=== PATIENT | female | born 1955 | race Caucasian/White ===

== ENCOUNTER 2018-05-17 05:41 | Outpatient (CLI) | payer BC ==
[~2018-05-17] VITALS: Ht 157.5 cm; Wt 79.8 kg
[2018-05-17] MEDS ORDERED: LORA10TA7 PO (14:45)
[2018-05-17] MEDS ORDERED: NADO20TA PO (14:45)
[2018-05-17] MEDS ORDERED: SIMV20TA PO (14:45)
[2018-05-17] MEDS ORDERED: ESCI10TA PO (14:45)
[2018-05-17] MEDS ORDERED: LEVO125T PO (14:45)
[2018-05-17] MEDS ORDERED: ASPI-586 PO (14:45)
== END 2018-05-17 14:55 | disposition home or self-care (01) ==
LOC: PREOP 05:41
PROVIDERS: ATTEND Specialist
DX: Z01.818 Encounter for other preprocedural examination (principal)

== ENCOUNTER 2018-05-23 07:19 | Day surgery (SDC) | payer BC ==
[~2018-05-23] VITALS: Ht 157.5 cm; Wt 79.8 kg
[~2018-05-23 07:19] MED LIST: ASPI-586 PO; ESCI10TA PO; LEVO125T PO; LORA10TA7 PO; NADO20TA PO; SIMV20TA PO
[2018-05-23 07:22] VITALS: BP 139/75
[2018-05-23] MEDS ORDERED: EPINEPHrine INJECTION 1 MG/ML AMP INJ ONE (07:30)
[2018-05-23] MEDS ORDERED: POVIDONE (BETADINE) OPHTH SOLN 5% 30 ML OP ONE (07:30)
[2018-05-23] MEDS ORDERED: BSS 15 ML IR PRN (07:30)
[2018-05-23] MEDS ORDERED: LIDOCAINE PF 1% 2 ML AMP IR PRN (07:30)
[2018-05-23] MEDS ORDERED: MOXIFLOXACIN OPHTH SOLN 5 MG/ML 0.3 ML SYRINGE OP ONE (07:30)
[2018-05-23] MEDS ORDERED: acetaZOLAMIDE ER 500 MG CAP (DIAMOX SEQUELS) PO ONE (07:30)
[2018-05-23] MEDS ORDERED: TIMOLOL MALEATE 0.5% 5 ML (TIMOPTIC) BTL OU PRN (07:30)
[2018-05-23] MEDS: TETRACAINE 0.5% OPHTH SOLN 4 ML BTL (SINGLE DOSE ONLY) OU PRN ×4 (07:33→07:50)
[2018-05-23] MEDS ORDERED: MIDAZOLAM 2 MG/2 ML (VERSED) VIAL ONE (07:33)
[2018-05-23] MEDS: PHENYLEPHRINE 10% OPHTH (NEO-SYN) 5 ML BTL OU SCH ×3 (07:41→07:50)
[2018-05-23] MEDS: CYCLOPENTOLATE 1% (CYCLOGYL) 2 ML DROPS OP SCH ×3 (07:41→07:50)
--- NOTE | 2018-05-23 07:47 | Ophthalmologist Pre-Op Note ---
Pre-Operative Progress Note H&P Reviewed The H&P was reviewed, patient examined and no changes noted. Date H&P Reviewed: May 23, 2018 Time H&P Reviewed: 07:46 Pre-Op Dx Cataract, Left Eye KYLEIGH SALAZAR MD May 23, 2018 07:46
--- NOTE | 2018-05-23 08:19 | Ophthalmology Operative Report ---
Cataract removal/placement IOL PREOPERATIVE DIAGNOSIS: Cataract Left Eye POSTOPERATIVE DIAGNOSIS: Cataract Left Eye PROCEDURE: Cataract removal and placement of posterior chamber implant, left eye SURGEON: Edu Salazar ANESTHESIA: Topical with sedation COMPLICATIONS: None ESTIMATED BLOOD LOSS: Minimal DESCRIPTION OF PROCEDURE: After proper informed consent was obtained, the patient, a 63 female, was taken to the Operating Room and the left eye was anesthetized with tetracaine. The left eye was then prepped and draped in the usual manner. A wire lid speculum was placed. A paracentesis was made at the left hand position. Preservative free lidocaine was injected into the anterior chamber followed by viscoelastic. A clear corneal incision was made in the temporal position. A capsulorrhexis was preformed and the central nuclear and cortical material were removed. The posterior capsule was polished and an Joss 24.0 [id number] IOL was placed into the capsular bag. The residual viscoelastic was aspirated and balanced saline solution was injected into the anterior chamber. Moxifloxacin was injected into the anterior chamber. The wound was checked and found to be water tight. The patient tolerated the procedure well without complications. EDU SALAZAR MD May 23, 2018 08:19
[2018-05-23 08:25] VITALS: BP 135/83
--- NOTE | 2018-05-23 13:16 | Anesthesia-General Post-Op ---
MAC Patient Condition Mental Status/LOC: Same as Preop Cardiovascular: Satisfactory Nausea/Vomiting: Absent Respiratory: Satisfactory Pain: Controlled Complications: Absent Post Op Complications Complications None Follow Up Care/Instructions Patient Instructions None needed. Anesthesiology Discharge Order Discharge Order Patient is doing well, no complaints, stable vital signs, no apparent adverse anesthesia problems. No complications reported per nursing. YORDY ROLLE CRNA May 23, 2018 13:16
== END 2018-05-23 08:27 | disposition home or self-care (01) ==
LOC: SDC 07:19
PROVIDERS: ATTEND Specialist
DX: H25.12 Age-related nuclear cataract, left eye (principal); I10 Essential (primary) hypertension; Z79.82 Long term (current) use of aspirin; Z79.899 Other long term (current) drug therapy

== ENCOUNTER 2018-06-13 06:10 | Outpatient (CLI) | payer BC | END 2018-06-13 13:33 | disposition home or self-care (01) | LOC: PREOP 06:10 | PROVIDERS: ATTEND Specialist | DX: Z01.818 Encounter for other preprocedural examination (principal) ==

== ENCOUNTER 2018-06-17 07:16 | Day surgery (SDC) | payer BC ==
[~2018-06-17] VITALS: Ht 157.5 cm; Wt 79.8 kg
[2018-06-17 07:23] VITALS: BP 133/72
[2018-06-17] MEDS: TETRACAINE 0.5% OPHTH SOLN 4 ML BTL (SINGLE DOSE ONLY) OU PRN ×4 (07:27→07:45)
[2018-06-17] MEDS ORDERED: MOXIFLOXACIN OPHTH SOLN 5 MG/ML 0.3 ML SYRINGE OP ONE (07:30)
[2018-06-17] MEDS ORDERED: LIDOCAINE PF 1% 2 ML AMP IR PRN (07:30)
[2018-06-17] MEDS ORDERED: TIMOLOL MALEATE 0.5% 5 ML (TIMOPTIC) BTL OU PRN (07:30)
[2018-06-17] MEDS ORDERED: POVIDONE (BETADINE) OPHTH SOLN 5% 30 ML OP ONE (07:30)
[2018-06-17] MEDS: CYCLOPENTOLATE 1% (CYCLOGYL) 2 ML DROPS OP SCH ×3 (07:35→07:45)
[2018-06-17] MEDS: PHENYLEPHRINE 10% OPHTH (NEO-SYN) 5 ML BTL OU SCH ×3 (07:35→07:45)
[2018-06-17] MEDS ORDERED: MIDAZOLAM 2 MG/2 ML (VERSED) VIAL ONE (07:38)
--- NOTE | 2018-06-17 07:50 | Ophthalmologist Pre-Op Note ---
Pre-Operative Progress Note H&P Reviewed The H&P was reviewed, patient examined and no changes noted. Date H&P Reviewed: Jun 17, 2018 Time H&P Reviewed: 07:49 Pre-Op Dx Cataract, Right Eye KYLEIGH SALAZAR MD Jun 17, 2018 07:50
--- NOTE | 2018-06-17 08:24 | Ophthalmology Operative Report ---
Cataract removal/placement IOL PREOPERATIVE DIAGNOSIS: Cataract Right Eye POSTOPERATIVE DIAGNOSIS: Cataract Right Eye PROCEDURE: Cataract removal and placement of posterior chamber implant, right eye SURGEON: Edu Salazar ANESTHESIA: Topical with sedation COMPLICATIONS: None ESTIMATED BLOOD LOSS: Minimal DESCRIPTION OF PROCEDURE: After proper informed consent was obtained, the patient, a 63 female, was taken to the Operating Room and the right eye was anesthetized with tetracaine. The right eye was then prepped and draped in the usual manner. A wire lid speculum was placed. A paracentesis was made at the left hand position. Preservative free lidocaine was injected into the anterior chamber followed by viscoelastic. A clear corneal incision was made in the temporal position. A capsulorrhexis was preformed and the central nuclear and cortical material were removed. The posterior capsule was polished and Joss [id number] 23.5 IOL was placed into the capsular bag. The residual viscoelastic was aspirated and balanced saline solution was injected into the anterior chamber. Moxifloxacin was injected into the anterior chamber. The wound was checked and found to be water tight. The patient tolerated the procedure well without complications. EDU SALAZAR MD Jun 17, 2018 08:24
[2018-06-17] MEDS ORDERED: acetaZOLAMIDE ER 500 MG CAP (DIAMOX SEQUELS) PO ONE (08:30)
[2018-06-17 08:32] VITALS: BP 133/72
--- NOTE | 2018-06-17 09:28 | Anesthesia-General Post-Op ---
MAC Patient Condition Mental Status/LOC: Same as Preop Cardiovascular: Satisfactory Nausea/Vomiting: Absent Respiratory: Satisfactory Pain: Controlled Complications: Absent Post Op Complications Complications None Follow Up Care/Instructions Patient Instructions None needed. Anesthesiology Discharge Order Discharge Order Patient is doing well, no complaints, stable vital signs, no apparent adverse anesthesia problems. No complications reported per nursing. MARIO GAYLE CRNA Jun 17, 2018 09:28
== END 2018-06-17 08:32 | disposition home or self-care (01) ==
LOC: SDC 07:16
PROVIDERS: ATTEND Specialist
DX: H25.11 Age-related nuclear cataract, right eye (principal); I10 Essential (primary) hypertension; E03.9 Hypothyroidism, unspecified; E78.00 Pure hypercholesterolemia, unspecified; E78.5 Hyperlipidemia, unspecified; Z79.899 Other long term (current) drug therapy; Z79.82 Long term (current) use of aspirin; Z80.3 Family history of malignant neoplasm of breast

== ENCOUNTER 2019-06-07 05:36 | Outpatient (CLI) | payer BC ==
[~2019-06-07] VITALS: Ht 160 cm; Wt 79.5 kg
== END 2019-06-07 13:18 | disposition home or self-care (01) ==
LOC: PREOP 05:36
PROVIDERS: ATTEND Specialist
DX: Z01.818 Encounter for other preprocedural examination (principal)

== ENCOUNTER 2019-06-09 06:23 | Day surgery (SDC) | payer BC ==
[~2019-06-09] VITALS: Ht 160 cm; Wt 79.5 kg
[2019-06-09 06:35] VITALS: BP 120/70
[2019-06-09] MEDS ORDERED: PHENYLEPHRINE 10% OPHTH (NEO-SYN) 5 ML BTL OU PRN (06:45)
[2019-06-09] MEDS ORDERED: TETRACAINE 0.5% OPHTH SOLN 4 ML BTL (SINGLE DOSE ONLY) OU PRN (06:45)
[2019-06-09] MEDS ORDERED: TROPICAMIDE 1% OPH SOLN (MYDRIACYL) 15 ML BTL OU PRN (06:45)
[2019-06-09 07:30] VITALS: BP 120/70
--- NOTE | 2019-06-09 07:45 | Ophthalmologist Pre-Op Note ---
Pre-Operative Progress Note H&P Reviewed The H&P was reviewed, patient examined and no changes noted. Date H&P Reviewed: Jun 09, 2019 Time H&P Reviewed: 07:25 Pre-Op Dx Secondary Cataract, Bilateral Eyes KYLEIGH SALAZAR MD Jun 09, 2019 07:45 POS
--- NOTE | 2019-06-09 07:46 | Ophthalmology Operative Report ---
YAG Capsulotomy PREOPERATIVE DIAGNOSIS: Secondary Cataract Bilateral POSTOPERATIVE DIAGNOSIS: Secondary Cataract Bilateral PROCEDURE: YAG Capsulotomy, Bilateral SURGEON: Edu Salazar ANESTHESIA: Topical anesthesia COMPLICATIONS: None ESTIMATED BLOOD LOSS: Minimal DESCRIPTION OF PROCEDURE: After proper informed consent was obtained, the patient's, a 64 female , received one drop of Tropicamide and one drop of Tetracaine in each eye. The patient was then placed at the YAG laser and using a power of [3.5 ] millijoules and bursts [ 12] right eye and [11 ] left eye were used to fashion a central capsulotomy. The patient tolerated the procedure well without complications. EDU SALAZAR MD Jun 09, 2019 07:46 POS
--- OUTSIDE RECORDS SUMMARY | 2019-07-02 20:27 | XMS REPORT | Continuity of Care Document ---
Author Organization Unknown POS Address Unknown SP Phone Unavailable SP Allergies Active Description Code Type Severity POS Reaction Onset Reported/Identified POS to Patient Clinical Status POS Yes NO KNOWN DRUG ALLERGIES UNKNOWN SP NO KNOWN DRUG ALLERG SP SP Yes NO KNOWN DRUG ALLERGIES UNKNOWN SP UNKNOWN SP Medications There is no data. Problems Date Dx Coded Attending Type Code POS Diagnosed By POS 08/29/2017 A 079.99 UNS PECIFIED VIRAL SP IN CONDITIONS CLASSIFIED ELSEWHERE AND OF UNSPECIFIED SITE SP 08/29/2017 A B34.9 ROBBY L INFECTION, SP SP 12/22/2017 W 244.9 UNSP ECIFIED SP SP 12/22/2017 W 272.4 OTHE R AND SP HYPERLIPIDEMIA SP 12/22/2017 W 401.0 DELMA GNANT ESSENTIAL SPHYPERTENSION SP 12/22/2017 A 697.0 LICH EN PLANUS SP SP 12/22/2017 W 796.4 OTHE R ABNORMAL SP FINDINGS SP 12/22/2017 W E03.9 HYPO THYROIDISM, SP SP 12/22/2017 W E78.5 HYPE RLIPIDEMIA, SP SP 12/22/2017 W I10 ESSENT IAL (PRIMARY) SP SP 12/22/2017 A L43.8 OTHE R LICHEN PLANUS SP SP 12/23/2017 Fredy [place] W 272.4 OTHER SP UNSPECIFIED HYPERLIPIDEMIA SP 12/23/2017 Fredy, [place] W 401.0 SP ESSENTIAL HYPERTENSION SP 12/23/2017 Fredy, [place] W E78.5 SP UNSPECIFIED SP 12/23/2017 Fredy, [place] W I10 SP (PRIMARY) HYPERTENSION SP 12/23/2017 Fredy, [place] W 244.9 SP HYPOTHYROIDISM SP 12/23/2017 Fredy, [place] W 272.4 OTHER SP UNSPECIFIED HYPERLIPIDEMIA SP 12/23/2017 Fredy, [place] W 401.0 SP ESSENTIAL HYPERTENSION SP 12/23/2017 Fredy, [place] W E03.9 SP UNSPECIFIED SP 12/23/2017 Fredy, [place] W E78.5 SP UNSPECIFIED SP 12/23/2017 Fredy, [place] W I10 SP (PRIMARY) HYPERTENSION SP 12/23/2017 Fredy, [place] W 244.9 SP HYPOTHYROIDISM SP 12/23/2017 Fredy, [place] W 272.4 OTHER SP UNSPECIFIED HYPERLIPIDEMIA SP 12/23/2017 Fredy, [place] W 401.0 SP ESSENTIAL HYPERTENSION SP 12/23/2017 Fredy, [place] W E03.9 SP UNSPECIFIED SP 12/23/2017 Fredy, [place] W E78.5 SP UNSPECIFIED SP 12/23/2017 Fredy, [place] W I10 SP (PRIMARY) HYPERTENSION SP 03/17/2018 Fredy, [place] W 796.4 OTHER SP CLINICAL FINDINGS SP 08/29/2018 W 244.9 UNSP ECIFIED SP SP 08/29/2018 W E03.9 HYPO THYROIDISM, SP SP 08/29/2018 W V70.0 ROUT INE GENERAL SP EXAMINATION AT A HEALTH CARE FACILITY SP 08/29/2018 W Z00.00 ENC OUNTER FOR SP ADULT MEDICAL EXAMINATION WITHOUT ABNORMAL FINDINGS SP 09/12/2018 [facility], [place] W V70.0 SP GENERAL MEDICAL EXAMINATION AT A HEALTH CARE FACILITY SP 09/12/2018 [facility] [place] W Z00.00 SP FOR GENERAL ADULT MEDICAL EXAMINATION WITHOUT ABNORMAL FINDINGS SP 09/12/2018 [facility] [place] W 244.9 SP HYPOTHYROIDISM SP 09/12/2018 [facility] [place] W E03.9 SP UNSPECIFIED SP 09/12/2018 [facility] [place] W V70.0 SP GENERAL MEDICAL EXAMINATION AT A HEALTH CARE FACILITY SP 09/12/2018 [facility] [place] W Z00.00 SP FOR GENERAL ADULT MEDICAL EXAMINATION WITHOUT ABNORMAL FINDINGS SP 09/12/2018 [facility] [place] W 244.9 SP HYPOTHYROIDISM SP 09/12/2018 [facility] [place] W E03.9 SP UNSPECIFIED SP 09/12/2018 [facility] [place] W V70.0 SP GENERAL MEDICAL EXAMINATION AT A HEALTH CARE FACILITY SP 09/12/2018 Fredy, [place] W Z00.00 SP FOR GENERAL ADULT MEDICAL EXAMINATION WITHOUT ABNORMAL FINDINGS SP 11/02/2018 [facility] [place] W V70.0 SP GENERAL MEDICAL EXAMINATION AT A HEALTH CARE FACILITY SP 11/02/2018 Fredy, [place] W Z00.00 SP FOR GENERAL ADULT MEDICAL EXAMINATION WITHOUT ABNORMAL FINDINGS SP 11/02/2018 [place] Daniel W V70.0 SP GENERAL MEDICAL EXAMINATION AT A HEALTH CARE FACILITY SP 11/02/2018 [place] Daniel W Z00.00 SP FOR GENERAL ADULT MEDICAL EXAMINATION WITHOUT ABNORMAL FINDINGS SP 01/09/2019 W 788.1 DYSURIA SP 01/09/2019 W R30.0 DYSURIA SP Procedures There is no data. Results Test Result Range POS Hemoglobin A1C - 12/18/16 07:32 POS % A1C 5.90 % 5.40-6.60 SP AvGlu 131 mg/dL 70-110 SP Urine Culture - 12/18/16 07:32 POS PRELIM CULTURE RESULTS >100,000 Gram Negativ e VALENCIA / ID to Follow SP SP CULTURE SOURCE [id number] SP Urine Culture - 02/02/17 17:05 POS PRELIM CULTURE RESULTS >100,000 Gram Negativ e VALENCIA / ID to Follow SP SP MEDIA PLATED Setup at 17:16 on 02/02/2017 SP CULTURE SOURCE void SP Sensi - 02/02/17 17:05 POS FINAL CULTURE RESULTS Klebsiella pneumoniae ([place] te 1) SP Ampicillin/Sulbactam <=8/4 SP Ampicillin >16 SP Amoxicillin/K Clavulanate <=8/4 SP Ceftriaxone <=8 SP Ciprofloxacin <=1 SP Nitrofurantoin <=32 SP Gentamicin <=4 SP Levofloxacin <=2 SP Trimethoprim/ Sulfamethoxazole <=2/38 SP Tetracycline <=4 SP Amikacin <=16 SP Aztreonam <=8 SP Ceftazidime <=1 SP Ceftazidime/K Clavulanate <=0.25 SP Cephalothin <=8 SP Cefotaxime <=2 SP Cefotaxime/K Clavulanate <=0.5 SP Cefoxitin <=8 SP Cefazolin <=8 SP Cefepime <=8 SP Cefuroxime 8 SP Ertapenem <=1 SP Imipenem <=4 SP Meropenem <=4 SP Piperacillin/Tazobactam <=16 SP Piperacillin <=16 SP Tigecycline 4 SP Tobramycin <=4 SP Urinalysis - 03/10/17 10:01 POS Icotest N/A Negative SP Urine Volume Urine Volume Sufficient (10mL) SP Urine Yeast No Yeast present SP Urine-Appearance Cloudy Clear SP Urine-Bacteria 1+ SP Urine-Bilirubin Negative Negative SP Urine-Blood Negative Negative SP Urine-Color Yellow Colorless-[place] ow SP Urine-Epithelial Cells 0-5/HPF SP Urine-Glucose Negative Negative SP Urine-Ketones Negative Negative SP Urine-Leukocytes 1+ Negative SP Urine-Nitrite Negative Negative SP Urine-Other Urine Saved if Culture Need ed (48hrs from time of SP SP Urine-pH 5.5 5-8.5 SP Urine-Protein Negative Negative SP Urine-RBC Negative SP Urine-Specific [place] 1.025 1.000-1 .030 SP Urine-WBC 2-5/HPF SP Urobilinogen 0.2 E.U./dL 0.2-1.0 SP Urinalysis - 12/23/17 07:21 POS Icotest N/A Negative SP Urine Volume Urine Volume Sufficient (10mL) SP Urine Yeast No Yeast present SP Urine-Appearance Cloudy Clear SP Urine-Bacteria 4+ SP Urine-Bilirubin Negative Negative SP Urine-Blood Trace-intact Negative SP Urine-Color Yellow Colorless-[place] ow SP Urine-Epithelial Cells 10-20/HPF SP Urine-Glucose Negative Negative SP Urine-Ketones Negative Negative SP Urine-Leukocytes 1+ Negative SP Urine-Nitrite Positive Negative SP Urine-Other Culture to follow SP Urine-pH 6.0 5-8.5 SP Urine-Protein Negative Negative SP Urine-RBC Rare/HPF SP Urine-Specific [place] 1.020 1.000-1 .030 SP Urine-WBC 20-40/HPF SP Urobilinogen 0.2 E.U./dL 0.2-1.0 SP Urine Culture - 12/23/17 07:21 POS PRELIM CULTURE RESULTS >100,000 Gram Negativ e VALENCIA / ID to Follow SP50,000 Gram Positive VALENCIA/ID to Follow SP MEDIA PLATED Setup at 09:58 on 12/23/2017 SP CULTURE SOURCE void SP Sensi - 12/23/17 07:21 POS FINAL CULTURE RESULTS Klebsiella pneumoniae ([place] te 1) SP Ampicillin/Sulbactam <=8/4 SP Ampicillin <=8 SP Amoxicillin/K Clavulanate <=8/4 SP Ceftriaxone <=8 SP Ciprofloxacin <=1 SP Nitrofurantoin <=32 SP Gentamicin <=4 SP Levofloxacin <=2 SP Trimethoprim/ Sulfamethoxazole <=2/38 SP Tetracycline <=4 SP Amikacin <=16 SP Aztreonam <=8 SP Ceftazidime <=1 SP Ceftazidime/K Clavulanate <=0.25 SP Cephalothin <=8 SP Cefotaxime <=2 SP Cefotaxime/K Clavulanate <=0.5 SP Cefoxitin <=8 SP Cefazolin <=8 SP Cefepime <=8 SP Cefuroxime 8 SP Ertapenem <=1 SP Imipenem <=4 SP Meropenem <=4 SP Piperacillin/Tazobactam <=16 SP Piperacillin <=16 SP Tigecycline <=2 SP Tobramycin <=4 SP Sensi - 12/23/17 07:21 POS Ampicillin/Sulbactam <=8/4 SP Ampicillin <=2 SP Amoxicillin/K Clavulanate <=4/2 SP Ceftriaxone >32 SP Clindamycin >4 SP Cefoxitin Screen N/R SP Ciprofloxacin <=1 SP Daptomycin <=0.5 SP Erythromycin >4 SP Nitrofurantoin <=32 SP Gentamicin >8 SP Gentamicin Synergy Screen <=500 SP Inducible Clindamycin N/R SP Levofloxacin <=1 SP Linezolid 2 SP Moxifloxacin <=0.5 SP Oxacillin >2 SP Penicillin 2 SP Rifampin >2 SP Streptomycin Synergy <=1000 SP Synercid N/R SP Trimethoprim/ Sulfamethoxazole >2/38 SP Tetracycline >8 SP Vancomycin 1 SP FINAL CULTURE RESULTS Enterococcus faecalis ([place] te 2) SP Thyroid Stimulating Hormone - 03/17/18 0 7:13 POS TSH 0.05 mIU/mL 0.32-5.00 SP Thyroid Stimulating Hormone - 05/13/18 1 2:00 POS TSH 0.14 mIU/mL 0.32-5.00 SP Thyroid Stimulating Hormone - 07/14/18 0 8:23 POS TSH 0.72 mIU/mL 0.32-5.00 SP Thyroid Stimulating Hormone - 09/12/18 0 8:37 POS TSH 0.58 mIU/mL 0.32-5.00 SP Urinalysis - 05/02/19 07:26 POS Icotest N/A Negative SP Urine Volume Urine Volume Sufficient (10mL) SP Urine-Appearance Slightly Cloudy Clear SP Urine-Bacteria 4+ SP Urine-Bilirubin Negative Negative SP Urine-Blood Trace-intact Negative SP Urine-Color Yellow Colorless-[place] ow SP Urine-Epithelial Cells 0-5/HPF SP Urine-Glucose Negative Negative SP Urine-Ketones Negative Negative SP Urine-Leukocytes 3+ Negative SP Urine-Nitrite Negative Negative SP Urine-Other Culture to follow SP Urine-pH 5.0 5-8.5 SP Urine-Protein Negative Negative SP Urine-RBC 0-2/HPF SP Urine-Specific [place] 1.020 1.000-1 .030 SP Urine-WBC 20-40/HPF SP Urobilinogen 0.2 E.U./dL 0.2-1.0 SP Urine Culture - 05/02/19 07:26 POS PRELIM CULTURE RESULTS 50,000-100,000 Gram N egative VALENCIA / ID to Follow [id number],000-20,000 Gram Positive Mixed Doris Probable Skin Contaminant SP MEDIA PLATED Setup at 10:10 on 05/02/2019 SP CULTURE SOURCE CC SP Sensi - 05/02/19 07:26 POS FINAL CULTURE RESULTS Klebsiella pneumoniae ([place] te 1) SP Ampicillin/Sulbactam <=8/4 SP Ampicillin >16 SP Amoxicillin/K Clavulanate <=8/4 SP Ceftriaxone <=8 SP Ciprofloxacin <=1 SP Nitrofurantoin <=32 SP Gentamicin <=4 SP Levofloxacin <=2 SP Trimethoprim/ Sulfamethoxazole <=2/38 SP Tetracycline <=4 SP Amikacin <=16 SP Aztreonam <=8 SP Ceftazidime <=1 SP Ceftazidime/K Clavulanate <=0.25 SP Cephalothin <=8 SP Cefotaxime <=2 SP Cefotaxime/K Clavulanate <=0.5 SP Cefoxitin <=8 SP Cefazolin <=8 SP Cefepime <=8 SP Cefuroxime <=4 SP Ertapenem <=1 SP Imipenem <=4 SP Meropenem <=4 SP Piperacillin/Tazobactam <=16 SP Piperacillin <=16 SP Tigecycline <=2 SP Tobramycin <=4 SP Encounters ACCT No. Visit Date/Time Discharge Status POS Pt. Type Provider Facility Loc./Un it POS Complaint POS [id number] 05/02/2019 07:21:00 05/02/2019 23:59: 00 DIS SP Outpatient [facility] [place] SP SP [id number] 01/09/2019 17:16:00 01/09/2019 23:59: 00 DIS SP Outpatient [facility], [place] SP SP [id number] 01/09/2019 17:10:00 01/09/2019 23:59: 00 DIS SP Outpatient [facility], [place] SP SP [id number] 11/02/2018 09:24:00 11/02/2018 23:59: 00 DIS SP Outpatient [facility], [place] SP SP [id number] 09/12/2018 08:35:00 09/12/2018 23:59: 00 DIS SP Outpatient [facility], [place] SP SP [id number] 07/14/2018 08:18:00 07/14/2018 23:59: 00 DIS SP Outpatient [facility], [place] SP SP [id number] 05/13/2018 07:12:00 05/13/2018 23:59: 00 DIS SP Outpatient [facility], [place] SP SP [id number] 03/17/2018 07:11:00 03/17/2018 23:59: 00 DIS SP Outpatient [facility] [place] SP SP [id number] 12/23/2017 07:19:00 12/23/2017 23:59: 00 DIS SP Outpatient [facility] [place] SP SP [id number] 03/10/2017 09:59:00 03/10/2017 23:59: 00 DIS SP Outpatient [facility] [place] SP SP [id number] 02/02/2017 17:03:00 02/02/2017 23:59: 00 DIS SP Outpatient [facility], [place] SP SP [id number] 01/11/2017 08:50:00 01/11/2017 23:59: 00 DIS SP Outpatient [facility] [place] SP SP [id number] 12/18/2016 07:30:00 12/18/2016 23:59: 00 DIS SP Outpatient [facility] [place] SP SP [id number] 01/09/2019 14:03:00 Document SP SP [id number] 08/29/2018 09:16:00 Document SP SP [id number] 12/22/2017 13:20:00 Document SP SP [id number] 08/29/2017 15:39:00 Document SP SP
== END 2019-06-09 07:30 | disposition home or self-care (01) ==
LOC: SDC 06:23
PROVIDERS: ATTEND Specialist
DX: H26.493 Other secondary cataract, bilateral (principal); J30.9 Allergic rhinitis, unspecified; E03.9 Hypothyroidism, unspecified; E78.00 Pure hypercholesterolemia, unspecified; Z80.3 Family history of malignant neoplasm of breast; Z83.511 Family history of glaucoma